=== PATIENT | female | born 1950 ===

== ENCOUNTER 2023-05-06 16:14 | Emergency (ER) | payer MEDICAID, SELFPAY ==
[2023-05-06 16:43] VITALS: BP 152/47; PULSE 68; RESP 18; TEMP 36.7; O2SAT 98; BMI 26.8
--- NOTE | 2023-05-06 16:48 | ED.GENADULT ---
HPI - General Adult General Chief complaint: Abdominal Pain Stated complaint: Flank pain Time Seen by Provider: 05/06/23 19:26 Source: patient Limitations: no limitations History of Present Illness HPI narrative: 72-year-old female presents with right flank pain. The pain started 3 weeks ago. The pain has been intermittent. Worse with certain positions. The pain does not radiate. Not associated with nausea vomiting. She denies any urinary frequency, urgency or dysuria. She denies any numbness or tingling. She denies any injuries. She was told that her blood test for kidney function was slightly off and she was supposed to follow-up with her primary care provider. She is visiting from [place]. Related Data Previous Rx's Medication Instructions Recorded methocarbamol 500 mg tablet 500 mg PO TID PRN back pain #10 05/06/23 tabs Allergies Allergy/AdvReac Type Severity Reaction Status Date / Time No Known Allergies Allergy Verified 05/06/23 16:45 Review of Systems Review of Systems: CONSTITUTIONAL: Denies weight loss, fever and chills. HEENT: Denies changes in vision and hearing. RESPIRATORY: Denies SOB and cough. CV: Denies palpitations no CP. GI: Denies abdominal pain, nausea, vomiting and diarrhea. : Denies dysuria and urinary frequency. MSK: + myalgia and joint pain. SKIN: Denies rash and pruritus. NEUROLOGICAL: Denies headache and syncope. PSYCHIATRIC: Denies recent changes in mood. Denies anxiety and depression. All other ROS are negative unless in HPI [facility] Social History Social History Advance Directives: No Advance Directives Information Provided: No Physical Exam ED Vital Signs: Vital Signs - 24 hr 05/06/23 16:43 05/06/23 19:48 Temperature 98.1 F 98.8 F Pulse Rate 68 58 Respiratory Rate 18 19 Blood Pressure 152/47 H 184/66 H Pulse Oximetry 98 99 Oxygen Delivery Method Room Air Room Air BMI result Body Mass Index 26.8 GEN: Well developed, no acute distress, alert, oriented HEENT: Normocephalic, atraumatic, normal external ears, nose appears normal, no oropharyngeal edema or exudates Eyes: Normal to appearance Neck: Supple, no lymphadenopathy Respiratory: Talks in complete sentences, no respiratory distress, clear to auscultation bilaterally Cardiovascular: Regular rate and rhythm, no murmurs rubs or gallops Abdomen: Soft, nontender, nondistended, no guarding, no rebound Back: No CVA tenderness right lumbar and lateral lumbar paraspinous and muscular tenderness, no CVA tender Extremities: No clubbing cyanosis or edema Neurologic: No focal neurologic deficits, cranial nerves 2-12 intact, strength is 5/5 bilaterally Skin: No rash Course Course Course Narrative: This is an RME: Additional HPI, ROS, PE not included below will be deferred to primary provider. This is a [id number] presenting to the ER with complaints of dysuria and right flank pain x 3 days. No fevers, chills, nausea, vomiting, diarrhea. VSS. Plan: Labs, UA. Defer imaging until seen by provider Reevaluation(s) Reevaluation #1: Urine shows no evidence of significant hematuria or infection. Patient is most likely musculoskeletal pain. Will place patient on Tylenol and muscle relaxer with capsaicin cream. This was discussed with patient and son. Time: 20:48 Medical Decision Making Medical Decision Making [facility] [place] Narrative: Patient presents with right flank pain. Differential diagnosis includes renal colic, pyelonephritis, musculoskeletal, neuropathic, doubt shingles given the duration of symptoms. Plan will be to obtain urinalysis. Consider imaging based on urinalysis. Differential Diagnosis Differential Diagnoses: The differential diagnosis associated with the presentation includes (See above) Lab Data [facility] [place] Lab Attestation statement: I reviewed the patient's lab results. 05/06/23 17:02 05/06/23 17:02 Labs: Lab Results 05/06/23 05/06/23 05/06/23 Range/Units 17:02 17:02 19:50 WBC 5.5 (4.8-10.8) X10*3/uL RBC 3.30 L (4.20-5.50) X10*6/uL Hgb 10.4 L (12.0-16.0) g/dl Hct 31.8 L (37.0-47.0) % MCV 96.4 (80.0-98.0) fL MCH 31.5 (27.0-33.0) pg MCHC 32.7 (31.0-35.0) g/dl RDW 12.7 (11.0-16.0) % Plt Count 251 (160-400) X10*3/uL MPV 10.1 (9.4-12.3) fL Immature Gran % (Auto) 0.4 (0.0-0.4) % Neut % (Auto) 47.2 (45-73) % Lymph % (Auto) 37.8 (20-40) % Pope % (Auto) 11.2 H (2-11) % Eos % (Auto) 2.9 (0-4) % Baso % (Auto) 0.5 (0-2) % Lymph # (Auto) 2.1 (1.2-4.9) X10*3/uL Pope # (Auto) 0.6 (0.1-1.2) X10*3/uL Eos # (Auto) 0.2 (0.0-0.4) X10*3/uL Baso # (Auto) 0.0 (0.0-0.2) X10*3/uL Abs Immat Gran (auto) 0.02 (0.00-0.03) X10*3/uL Absolute Neuts (auto) 2.6 (2.0-8.3) x10*3/uL Absolute Nucleated RBC 0.000 (0.0-0.012) X10*3/uL Nucleated RBC % (auto) 0.0 (0.0-0.2) /100WBC Sodium 144 (135-145) mmol/L Potassium 4.6 (3.3-5.1) mmol/L Chloride 112 H (96-108) mmol/L Carbon Dioxide 22 (22-29) mmol/L Anion Gap 15 (12-20) BUN 16 (9-16) mg/dL Creatinine 1.24 (0.5-1.4) mg/dL Estim Creat Clear Calc 33.2 Estimated GFR 42 Random Glucose 108 (60-115) mg/dL Calcium 9.4 (8.4-10.2) mg/dL Magnesium 2.0 (1.6-2.6) mg/dL Total Bilirubin 0.2 (0.0-1.0) mg/dL Direct Bilirubin < 0.2 (0.0-0.5) mg/dL AST 27 (5-31) U/L ALT 25 (0-31) U/L Alkaline Phosphatase 104 (39-117) U/L Total Protein 6.5 (6.5-8.0) g/dL Albumin 3.9 (3.5-5.0) g/dL Lipase 34 (8-78) U/L Urine Color Yellow Urine Appearance Clear Urine pH 6.5 (5.0-9.0) Ur Specific [place] 1.015 (1.005-1.025) Urine Protein Negative (Neg-Trace) mg/dL Urine Glucose (UA) Negative (Negative) mg/dL Urine Ketones Negative (Negative) mg/dL Urine Blood Negative (Negative) Urine Nitrite Negative (Negative) Ur Leukocyte Esterase Trace H (Negative) Urine RBC 0-2 (0-2) /HPF Urine WBC 0-5 (0-5) /HPF Ur Squamous Epith Cells 0-2 (0-2) /HPF Urine Bacteria None Seen (None Seen) Hyaline Casts 0-2 (0-2) /LPF Independent Historian Clinical information obtained from an independent historian. History obtained from or confirmed by: Other (Family) Prescription Management I considered prescription management with: Pain Medication Discharge Plan Discharge Clinical Impression: Acute lumbar back pain Patient Disposition: Home, Self-Care Instructions: Back Pain (ED) Additional Instructions: For pain take the following: Tylenol 1000 mg every 6 hours as needed Methocarbamol 500 mg every 8 hours as needed for muscle spasm Capsaicin cream 3-4 times daily as needed. This is available [id number] Prescriptions: New methocarbamol 500 mg tablet 500 mg PO TID PRN (Reason: back pain) Qty: 10 0RF Referrals: Physician,Unknown J [Primary Care Provider] - (Primary care provider as needed)
[2023-05-06 17:05] LABS: MANUAL DIFF FLAG NO
[2023-05-06 17:19] LABS: Basophils Percent Auto 0.5 % (0-2); Eosinophils Absolute Auto 0.2 X10*3/uL (0.0-0.4); Eosinophils Percent Auto 2.9 % (0-4); Hematocrit 31.8 % (37.0-47.0); Hemoglobin 10.4 g/dl (12.0-16.0); Imm Gran Abs Auto 0.02 X10*3/uL (0.00-0.03); Imm Gran Pct Auto 0.4 % (0.0-0.4); Lymphocytes Absolute Auto 2.1 X10*3/uL (1.2-4.9); Lymphocytes Percent Auto 37.8 % (20-40); Mean Corpuscular HGB Conc 32.7 g/dl (31.0-35.0); Mean Corpuscular Hemoglobin 31.5 pg (27.0-33.0); Mean Corpuscular Volume 96.4 fL (80.0-98.0); Mean Platelet Volume 10.1 fL (9.4-12.3); Monocytes Absolute Auto 0.6 X10*3/uL (0.1-1.2); Monocytes Percent Auto 11.2 % (2-11); Neutrophils Absolute Auto 2.6 x10*3/uL (2.0-8.3); Neutrophils Percent Auto 47.2 % (45-73); Platelet Count 251 X10*3/uL (160-400); Red Cell Distribution Width 12.7 % (11.0-16.0); White Blood Count 5.5 X10*3/uL (4.8-10.8)
[2023-05-06 17:25] LABS: Alanine Aminotransferase 25 U/L (0-31); Albumin Level 3.9 g/dL (3.5-5.0); Alkaline Phosphatase 104 U/L (39-117); Anion Gap 15 (12-20); Aspartate Amino Transferase 27 U/L (5-31); Bilirubin Direct < 0.2 mg/dL (0.0-0.5); Bilirubin Total 0.2 mg/dL (0.0-1.0); Blood Urea Nitrogen 16 mg/dL (9-16); Calcium 9.4 mg/dL (8.4-10.2); Carbon Dioxide 22 mmol/L (22-29); Chloride 112 mmol/L (96-108); Creatinine Clr Calc Pharmacy 33.2; Estimated Glomerular Filt Rate 42; Glucose Random 108 mg/dL (60-115); Lipase 34 U/L (8-78); Potassium 4.6 mmol/L (3.3-5.1); Sodium 144 mmol/L (135-145); Total Protein 6.5 g/dL (6.5-8.0)
[2023-05-06 19:48] VITALS: BP 184/66; PULSE 58; RESP 19; TEMP 37.1; O2SAT 99
[2023-05-06 19:58] LABS: Appearance Urine Clear; Color Urine Yellow; Glucose Urine UA Negative (Negative); Leukocyte Esterase Urine Trace (Negative); Nitrite Urine Negative (Negative); PH 6.5 (5.0-9.0); Specific Gravity - Urine 1.015 (1.005-1.025); UMIC TRIGGER UACC YES; Urine Blood Negative (Negative); Urine Ketones Negative (Negative); Urine Protein Negative (Neg-Trace)
[2023-05-06 20:01] LABS: Bacteria Urine None Seen (None Seen); Hyaline Casts Urine 0-2 /LPF (0-2); RBC Urine 0-2 /HPF (0-2); Squamous Epithelial Cell Urine 0-2 /HPF (0-2); WBC Urine 0-5 /HPF (0-5)
--- NOTE | 2023-05-06 20:24 | MHC.EDTECH ---
This Tech assumed care of this pt upon arrival. pt changed over to hospital gown and socks, initial vital signs completed and urine sent to lab. RN made aware of elevated BP
== END 2023-05-06 21:10 | disposition home or self-care (01) ==
PROVIDERS: Physician Assistant Medical; Emergency Provider Emergency Medicine
DX: M54.50 Low back pain, unspecified (principal); Z79.899 Other long term (current) drug therapy
CPT/HCPCS: 36415; 80048; 80076; 81001; 83690; 83735; 85025; 99283